=== PATIENT | male | born 1980 | race Two or more races ===

== ENCOUNTER 2022-10-22 18:11 | Emergency (ER) | payer MEDICAID, OTHER ==
[~2022-10-22] VITALS: Ht 182.9 cm; Wt 95.4 kg
[2022-10-22] MEDS ORDERED: SODIUM CHLORIDE 0.9% 1,000 ML IV ONE (18:30)
[2022-10-22] MEDS ORDERED: ONDANSETRON HCL 4 MG/2 ML VIAL IV ONE (18:30)
[2022-10-22] MEDS ORDERED: HYDROmorphone HCL 2 MG/ML VL/or syr IM ONE (18:30)
[2022-10-22 19:35] LABS: Basophils # (auto) 0.1 10 ^3/uL (0-0.2); Basophils % (auto) 0.7 % (0.0-2.0); Eosinophils # (auto) 0.2 10 ^3/uL (0-0.8); Eosinophils % (auto) 1.2 % (0.0-7.0); Hematocrit 38.1 % (41.0-53.0); Hemoglobin 12.6 g/dL (13.5-17.5); Lymphocytes # (auto) 2.2 10 ^3/uL (0.4-5.4); Lymphocytes % (auto) 17.2 % (10.0-50.0); Mean Corpuscular Hemoglobin 29.5 pg (28.0-32.0); Mean Corpuscular Hgb Conc. 33.2 g/dL (32.0-36.0); Mean Corpuscular Volume 88.7 fL (80.0-100.0); Monocytes # (auto) 0.6 10 ^3/uL (0-1.3); Monocytes % (auto) 4.9 % (0.0-12.0); Neutrophils # (auto) 9.9 10 ^3/uL (1.6-8.6); Nucleated Red Blood Cells % 0.1 %; Red Blood Cells 4.29 10^6/uL (4.5-5.90); Red Cell Distribution Width 13.8 % (11.8-14.3)
[2022-10-22 19:48] LABS: INR 0.98 (0.9-1.15)
[2022-10-22 19:49] LABS: Calcium 8.4 mg/dL (8.5-10.1); Potassium 3.9 mmol/L (3.5-5.1)
[2022-10-22 19:55] LABS: Albumin 3.9 g/dL (3.4-5.0); BUN/Creatinine Ratio 13.7; Bilirubin, Total 0.5 mg/dL (0.2-1.0); Total Protein 7.1 g/dL (6.4-8.2)
[2022-10-22] MEDS ORDERED: HYDROmorphone HCL 2 MG/ML VL/or syr IV ONE (20:45)
[2022-10-22] MEDS ORDERED: ceFAZolin 1GM/50ML 100 ML IV ONE (21:15)
[2022-10-22] MEDS ORDERED: TETANUS-DIPTH-ACEL PERTUSSIS 0.5ML SYR Tdap IM ONE (21:15)
[2022-10-22 22:18] VITALS: BP 124/55
[2022-10-23] MEDS ORDERED: HYDROmorphone HCL 2 MG/ML VL/or syr IV ONE (10:00)
== END 2022-10-22 22:18 | disposition short-term general hospital (02) ==
LOC: ER 18:14 → EEVIPCON 18:14 → ER 22:18
DX: S22.32XA Fracture of one rib, left side, initial encounter for closed fracture (principal); S31.000A Unspecified open wound of lower back and pelvis without penetration into retroperitoneum, initial encounter; S11.90XA Unspecified open wound of unspecified part of neck, initial encounter; S21.109A Unspecified open wound of unspecified front wall of thorax without penetration into thoracic cavity, initial encounter; S71.102A Unspecified open wound, left thigh, initial encounter; J93.9 Pneumothorax, unspecified; Z20.822 Contact with and (suspected) exposure to COVID-19; X99.1XXA Assault by knife, initial encounter; Y93.89 Activity, other specified; Y92.89 Other specified places as the place of occurrence of the external cause; Y99.8 Other external cause status
CPT/HCPCS: 32551; 36415; 71045; 71250; 72125; 74176; 80053; 80320; 85025; 85610; 85730; 86850; 86900; 86901; 87426; 90471; 90715; 96361; 96365; 96372; 96375; 99285; J0690; J1170; J2405; J7030